=== PATIENT | female | born 1990 | race Two or more races ===

== ENCOUNTER → 2022-04-25 | Emergency (ER) | payer OTHER ==
[~2022-04-25] VITALS: Ht 157.5 cm; Wt 68.0 kg
[~2022-04-25] MED LIST: PRENA1 CHEW TA1.4 MG PO; SYNTHROID150 MCG PO
== END | disposition home or self-care (01) ==
LOC: ER 13:39
DX: O20.0 Threatened abortion (principal); Z91.013 Allergy to seafood

== ENCOUNTER 2022-05-05 13:03 | Outpatient (CLI) | payer OTHER | END 2022-05-05 13:14 | disposition home or self-care (01) | LOC: SONOGRAMA 13:03 | PROVIDERS: ATTEND Student in an Organized Health Care Education/Training Program | DX: R10.2 Pelvic and perineal pain (principal) ==

== ENCOUNTER 2022-09-02 12:52 | Emergency (ER) | payer OTHER ==
[~2022-09-02] VITALS: Ht 157.5 cm; Wt 72.6 kg
[2022-09-02] MEDS ORDERED: PROAIR RESPICL90 MCG IH (13:28)
== END 2022-09-02 17:41 | disposition home or self-care (01) ==
LOC: ER 12:52
DX: R53.81 Other malaise (principal); Z33.1 Pregnant state, incidental; Z91.013 Allergy to seafood

== ENCOUNTER 2022-10-20 09:29 | Outpatient (CLI) | payer OTHER ==
[~2022-10-20 09:29] MED LIST changes: +PROAIR RESPICL90 MCG IH
== END 2022-10-20 10:59 | disposition home or self-care (01) ==
LOC: PRENATAL 09:29
PROVIDERS: ATTEND Obstetrics & Gynecology Maternal & Fetal Medicine
DX: O35.9XX0 Maternal care for (suspected) fetal abnormality and damage, unspecified, not applicable or unspecified (principal); O35.3XX0 Maternal care for (suspected) damage to fetus from viral disease in mother, not applicable or unspecified; O99.280 Endocrine, nutritional and metabolic diseases complicating pregnancy, unspecified trimester; O34.10 Maternal care for benign tumor of corpus uteri, unspecified trimester; Z3A.20 20 weeks gestation of pregnancy

== ENCOUNTER 2023-01-12 09:29 | Outpatient (CLI) | payer OTHER | END 2023-01-12 10:53 | disposition home or self-care (01) | LOC: PRENATAL 09:29 | PROVIDERS: ATTEND Obstetrics & Gynecology Maternal & Fetal Medicine | DX: O26.849 Uterine size-date discrepancy, unspecified trimester (principal); O36.8199 Decreased fetal movements, unspecified trimester, other fetus; O99.280 Endocrine, nutritional and metabolic diseases complicating pregnancy, unspecified trimester; O34.10 Maternal care for benign tumor of corpus uteri, unspecified trimester; Z3A.32 32 weeks gestation of pregnancy ==

== ENCOUNTER 2023-02-23 17:03 | Inpatient (IN) | payer OTHER ==
[~2023-02-23] VITALS: Ht 157.5 cm; Wt 83.9 kg
[2023-02-23 17:58] LABS: URINE APPEARANCE Clear; URINE BILIRRUBIN Negative (NEGATIVE); URINE BLOOD Trace; URINE COLOR Yellow; URINE GLUCOSE Negative (NEGATIVE); URINE LEUKOCYTE Trace; URINE NITRATE Negative; URINE PROTEIN Negative (NEGATIVE); URINE UROBILINOGEN 0.2 E.U./dl
[2023-02-23 18:00] LABS: HEMATOCRIT 36.3 % (36.0-45.00); HEMOGLOBIN 12.2 g/dL (12.0-15.00); MEAN CELL VOLUME 79.3 fL (80.00-100.00); MEAN CORPUSCULAR HEMOGLOBIN 26.6 pg (27.00-32.0); MEAN CORPUSCULAR HGB CONC 33.6 g/dl (32.0-36.0); PLATELET COUNT 151 K/uL (150-450); RED BLOOD COUNT 4.58 M/uL (4.00-6.00); RED CELL DISTRIBUTION WIDTH 14.6 % (11.5-14.5); URINE BACTERIA 1928.6 uL (0.0-1933); URINE EPITHELIAL CELLS 108.8 uL (0.0-38.8); URINE RBC 14.7 uL (0.0-20.8); URINE WBC 15.9 uL (0.0-23.2)
[2023-02-23 18:17] LABS: INR < 0.93; PARTIAL THROMBOPLASTIN TIME 26.3 SECONDS (22.0-34.0); PROTHROMBIN TIME 9.8 SECONDS (9.0-11.5)
[2023-02-23 18:27] LABS: ALBUMIN 2.8 gm/dL (3.4-5.0); BILIRUBIN TOTAL 0.24 mg/dL (0.3-1.2); CALCIUM 9.1 mg/dL (8.5-10.1); CREATININE SERUM 0.63 mg/dL (0.55-1.02); GFR 110.22; GLOBULINA 3.5 G/DL (2.4-3.5); POTASSIUM 3.83 mEq/L (3.5-5.1); TOTAL PROTEIN 6.3 gm/dL (6.4-8.2)
[2023-02-24 18:23] LABS: ABG PH 7.274 (7.35-7.45); ABG pCO2 39.5 mmHg (35-45); BASE EXCESS -8.4 mmol/l; BICARBONATE 17.9 mmol/l (23-25); SaO2 27.9 %; Tco2 19.1 mmol/l
[2023-02-24 18:38] LABS: ABG PO2 22.1 mmHg (80-100)
[2023-02-24 18:39] LABS: o2 21 %
[2023-02-26] MEDS ORDERED: COLACE100 MG PO (08:49)
== END 2023-02-26 12:54 | disposition home or self-care (01) | DRG 768 ==
LOC: OB/GYN 17:03 → LDR 17:03 → OB/GYN 02-24 19:45
PROVIDERS: ADMIT Obstetrics & Gynecology; ATTEND Obstetrics & Gynecology
PROC: 4A1HXCZ Monitoring of Products of Conception, Cardiac Rate, External Approach (ICD-10-PCS; 2023-02-23)
PROC: 10E0XZZ Delivery of Products of Conception, External Approach (ICD-10-PCS; principal; 2023-02-24)
PROC: 0DQR0ZZ Repair Anal Sphincter, Open Approach (ICD-10-PCS; 2023-02-24)
PROC: 0W8NXZZ Division of Female Perineum, External Approach (ICD-10-PCS; 2023-02-24)
DX: O70.21 Third degree perineal laceration during delivery, IIIa (principal); Z37.0 Single live birth; Z3A.01 Less than 8 weeks gestation of pregnancy; Z20.822 Contact with and (suspected) exposure to COVID-19